=== PATIENT | female | born 1950 | race Two or more races ===

== ENCOUNTER 2018-05-27 11:03 | Outpatient (CLI) | payer OTHER | END 2018-05-27 11:23 | disposition home or self-care (01) | LOC: MRI 11:03 | DX: M25.511 Pain in right shoulder (principal) | CPT/HCPCS: 73218 ==

== ENCOUNTER 2018-07-14 11:34 | Outpatient (CLI) | payer OTHER | END 2018-07-14 11:50 | disposition home or self-care (01) | LOC: MRI 11:34 | DX: M25.551 Pain in right hip (principal) | CPT/HCPCS: 73721 ==